=== PATIENT | female | born 1950 | race Caucasian/White ===

== ENCOUNTER → 2016-06-27 | Outpatient (REF) | payer OTHER ==
[~2016-06-27] MED LIST: ASPI325T10 PO; ASPI81CH PO; BUPROPION PO; CALC25TA PO; CALC600T7 PO; CELE40TA PO; FIBER PILL PO; LEVO100T4 PO; NAPR500T PO; NICO14PA TD; OXYB5TAB80 PO; SYNT25TA PO; TYLE325T5 PO; VITMTA PO; WELLTAB4 PO; levoxyl PO
[2016-06-27 11:50] LABS: MEAN CORPUSCULAR HEMOGLOBIN 30.4 pg (27.0-33.0); MEAN CORPUSCULAR VOLUME 95.2 fl (80.0-96.0); RED CELL DISTRIBUTION WIDTH 12.9 % (11.5-14.5); WHITE BLOOD COUNT 7.4 K/mm3 (4.0-10.0)
[2016-06-27 12:14] LABS: ALBUMIN 4.1 GM/DL (3.2-5.2); ALBUMIN/GLOBULIN RATIO 1.21 (1.00-1.93); ALKALINE PHOSPHATASE 116 U/L (45-117); ALT/SGPT 28 U/L (12-78); ANION GAP 4 MEQ/L (8-16); AST/SGOT 19 U/L (15-37); BILIRUBIN,TOTAL 0.7 MG/DL (0.2-1.0); BLOOD UREA NITROGEN 29 MG/DL (7-18); CALCIUM LEVEL 9.6 MG/DL (8.8-10.2); CARBON DIOXIDE LEVEL 33 MEQ/L (21-32); CHLORIDE LEVEL 108 MEQ/L (98-107); CHOLESTEROL LEVEL 193 MG/DL (<200); CREATININE FOR GFR 0.98 MG/DL (0.55-1.02); GLOMERULAR FILTRATION RATE > 60.0 (>45); GLUCOSE, FASTING 87 MG/DL (80-110); POTASSIUM SERUM 4.8 MEQ/L (3.5-5.1); SODIUM LEVEL 145 MEQ/L (136-145); TOTAL PROTEIN 7.5 GM/DL (6.4-8.2); TRIGLYCERIDES LEVEL 105 MG/DL (<150)
== END ==
LOC: M SFHCLERA 09:05
PROVIDERS: ATTEND Physician Assistant
DX: N39.46 Mixed incontinence (principal); E78.2 Mixed hyperlipidemia; E03.9 Hypothyroidism, unspecified; E55.9 Vitamin D deficiency, unspecified

== ENCOUNTER → 2016-09-05 | Outpatient (REF) | payer OTHER ==
[2016-09-05 12:14] LABS: ALBUMIN 3.6 GM/DL (3.2-5.2); ALBUMIN/GLOBULIN RATIO 1.09 (1.00-1.93); ALKALINE PHOSPHATASE 122 U/L (45-117); ALT/SGPT 23 U/L (12-78); ANION GAP 4 MEQ/L (8-16); AST/SGOT 10 U/L (15-37); BILIRUBIN,TOTAL 0.2 MG/DL (0.2-1.0); BLOOD UREA NITROGEN 17 MG/DL (7-18); CALCIUM LEVEL 8.7 MG/DL (8.8-10.2); CARBON DIOXIDE LEVEL 32 MEQ/L (21-32); CHLORIDE LEVEL 107 MEQ/L (98-107); CHOLESTEROL LEVEL 140 MG/DL (<200); CREATININE FOR GFR 0.74 MG/DL (0.55-1.02); GLOMERULAR FILTRATION RATE > 60.0 (>45); GLUCOSE, FASTING 103 MG/DL (80-110); POTASSIUM SERUM 4.3 MEQ/L (3.5-5.1); SODIUM LEVEL 143 MEQ/L (136-145); TOTAL PROTEIN 6.9 GM/DL (6.4-8.2); TRIGLYCERIDES LEVEL 122 MG/DL (<150)
== END ==
LOC: M SFHCLERA 08:16
PROVIDERS: ATTEND Physician Assistant
DX: E78.2 Mixed hyperlipidemia (principal); E03.9 Hypothyroidism, unspecified

== ENCOUNTER → 2016-09-18 | Outpatient (REF) | payer OTHER | LOC: M SFHCLERA 08:30 | PROVIDERS: ATTEND Physician Assistant | DX: R68.2 Dry mouth, unspecified (principal); E03.9 Hypothyroidism, unspecified; Z11.59 Encounter for screening for other viral diseases; Z53.9 Procedure and treatment not carried out, unspecified reason ==

== ENCOUNTER → 2016-09-19 | Outpatient (REF) | payer OTHER ==
[2016-09-19 12:36] LABS: FREE T4 1.24 NG/DL (0.76-1.46)
== END ==
LOC: M SFHCLERA 08:45
PROVIDERS: ATTEND Physician Assistant
DX: R68.2 Dry mouth, unspecified (principal); E03.9 Hypothyroidism, unspecified; Z11.59 Encounter for screening for other viral diseases

== ENCOUNTER → 2016-12-14 | Outpatient (REF) | payer OTHER ==
[2016-12-14 13:37] LABS: MEAN CORPUSCULAR HEMOGLOBIN 31.3 pg (27.0-33.0); MEAN CORPUSCULAR VOLUME 94.9 fl (80.0-96.0); RED CELL DISTRIBUTION WIDTH 12.7 % (11.5-14.5); WHITE BLOOD COUNT 6.3 K/mm3 (4.0-10.0)
[2016-12-14 13:51] LABS: ALBUMIN 3.7 GM/DL (3.2-5.2); ALBUMIN/GLOBULIN RATIO 1.09 (1.00-1.93); ALKALINE PHOSPHATASE 104 U/L (45-117); ALT/SGPT 23 U/L (12-78); ANION GAP 8 MEQ/L (8-16); AST/SGOT 13 U/L (15-37); BILIRUBIN,TOTAL 0.3 MG/DL (0.2-1.0); BLOOD UREA NITROGEN 19 MG/DL (7-18); CALCIUM LEVEL 9.2 MG/DL (8.8-10.2); CARBON DIOXIDE LEVEL 29 MEQ/L (21-32); CHLORIDE LEVEL 105 MEQ/L (98-107); CHOLESTEROL LEVEL 205 MG/DL (<200); FREE T4 1.12 NG/DL (0.76-1.46); GLOMERULAR FILTRATION RATE > 60.0 (>45); GLUCOSE, FASTING 96 MG/DL (80-110); POTASSIUM SERUM 4.2 MEQ/L (3.5-5.1); SODIUM LEVEL 142 MEQ/L (136-145); TOTAL PROTEIN 7.1 GM/DL (6.4-8.2); TRIGLYCERIDES LEVEL 104 MG/DL (<150)
== END ==
LOC: M SFHCLERA 09:51
PROVIDERS: ATTEND Physician Assistant
DX: G25.81 Restless legs syndrome (principal); E78.2 Mixed hyperlipidemia; E03.9 Hypothyroidism, unspecified; Z01.84 Encounter for antibody response examination

== ENCOUNTER → 2017-01-01 | Outpatient (CLI) | payer MEDICARE ==
--- NOTE | 2017-01-01 12:05 | REPMRS ---
Patient History The patient states she had a clinical breast exam in Patient is postmenopausal. Family history of breast cancer in 2 sisters at age 50 or over. Taking estrogen for 4 years. Digital Woman Screen Mammo: January 01, 2017 - Exam #: [id number] Bilateral CC and MLO view(s) were taken. Technologist: Naila Silva, Technologist Prior study comparison: January 02, 2016, digital woman screen mammo performed at [facility]. January 17, 2015, digital woman screen mammo performed at [facility]. December 16, 2012, digital woman screen mammo performed at [facility]. FINDINGS: There are scattered fibroglandular densities. There is a 7 mm well-circumscribed nodular density in the retroareolar region of the left breast anterior third at approximately 6 o'clock which is more prominent than on prior mammograms and merits further evaluation. There has been no other change in the appearance of the mammogram from the prior studies. There is a mild amount of scattered fibroglandular density which is fairly symmetric. There is no interval development of architectural distortion or clustered microcalcification suggestive of malignancy. ASSESSMENT: BI-RADS/ACR category 0 mammogram, incomplete. Recommendation Ultrasound and follow-up diagnostic mammogram of the left breast. This mammogram was interpreted with the aid of an FDA-approved computer-aided dectection system. Electronically Signed By: Morgan Wilcox MD 01/01/17 1621
== END ==
LOC: M WHC 10:13
PROVIDERS: ATTEND Nurse Practitioner Family
DX: R92.2 Inconclusive mammogram (principal); B37.3 Candidiasis of vulva and vagina; Z78.0 Asymptomatic menopausal state; Z80.3 Family history of malignant neoplasm of breast; Z92.23 Personal history of estrogen therapy; Z12.12 Encounter for screening for malignant neoplasm of rectum
CPT/HCPCS: 82270; 87070; 87210; G0202; G0463

== ENCOUNTER → 2017-01-14 | Outpatient (CLI) | payer MEDICARE, MEDICAID ==
--- NOTE | 2017-01-14 12:43 | REP ---
DIGITAL DIAGNOSTIC UNILATERAL LEFT BREAST MAMMOGRAPHY AND FOCUSED LEFT BREAST SONOGRAPHY: HISTORY: Screening mammography January 01, 2017 was BIRADS category 0, incomplete because of a 7 mm well-circumscribed nodule in the retroareolar region on the left for which diagnostic imaging was recommended. FINDINGS: Magnified focal spot compression CC, true MLO, and MLO views of the left breast were obtained. These confirm the presence of a well-circumscribed nodule at approximately 6 o'clock position in the left breast. No other significant mammographic finding. SONOGRAPHIC FINDINGS: The left breast is scanned at approximate 6 o'clock position. There is a 0.5 x 0.4 x 0.3 cm cyst 1.5 cm from the nipple, which is felt to account for the mammographic opacity. A few slightly prominent dilated ducts are seen as well. No mass or acoustic shadowing is observed. IMPRESSION: BIRADS category 2 benign left breast imaging. Small cyst is observed in the retroareolar region at 6 o'clock position accounting for the mammographic opacity. Bilateral screening mammography recommended in 1 year. BI-RADS/ACR category 2 mammogram. Benign finding(s). Routine annual screening mammography (for women over age 40). This mammogram was interpreted with the aid of an FDA-approved computer-aided detection system. The patient states she/he had a clinical breast exam in December 2016 The patient letter being requested is M1. Signed by Manav Wilcox MD 01/14/2017 02:48 P
== END ==
LOC: M RAD 09:57
PROVIDERS: ATTEND Nurse Practitioner Family
DX: N60.02 Solitary cyst of left breast (principal)
CPT/HCPCS: 76642; G0206

== ENCOUNTER 2017-04-03 12:54 | Emergency (ER) | payer MEDICARE, MEDICAID ==
[~2017-04-03] VITALS: Ht 167.6 cm; Wt 78.2 kg
[2017-04-03] MEDS ORDERED: FOLI1TAB4 (13:06)
[2017-04-03] MEDS ORDERED: VITA1CAP40 (13:06)
[2017-04-03] MEDS ORDERED: OXYB5TAB10 (13:06)
[2017-04-03] MEDS ORDERED: ASPI81TA85 PO (13:06)
[2017-04-03] MEDS ORDERED: LEVO112T2 (13:06)
[2017-04-03] MEDS ORDERED: GABA-282 (13:06)
--- NOTE | 2017-04-03 13:31 | REP ---
Clinical: Trauma. Fall. Technique: AP, lateral, bilateral oblique views of the right wrist. Findings: There is a closed, nondisplaced fracture through the distal radial metaphysis extending to the articular surface. Overlying soft tissue swelling noted. The carpal bones appear intact. The distal ulna appears intact. Impression: Intra-articular fracture involving the distal radial metaphysis. Signed by Kendall Chen MD 04/03/2017 01:22 P
[2017-04-03] MEDS ORDERED: NORCOTAB PO (16:14)
[2017-04-03] MEDS ORDERED: NORCO, ANEXSIA 5/325MG TABLET (HYDROcodone/ACETAMINOPHEN) PO ONE (16:30)
[2017-04-03 16:54] VITALS: BP 114/59
== END 2017-04-03 17:00 | disposition home or self-care (01) ==
LOC: M ED 12:54
DX: S52.501A Unspecified fracture of the lower end of right radius, initial encounter for closed fracture (principal); W01.0XXA Fall on same level from slipping, tripping and stumbling without subsequent striking against object, initial encounter; Y92.828 Other wilderness area as the place of occurrence of the external cause; Y93.89 Activity, other specified; Y99.8 Other external cause status; F41.9 Anxiety disorder, unspecified; F33.9 Major depressive disorder, recurrent, unspecified; M54.5 Low back pain; E03.9 Hypothyroidism, unspecified; Z79.899 Other long term (current) drug therapy; Z79.82 Long term (current) use of aspirin; F17.210 Nicotine dependence, cigarettes, uncomplicated

== ENCOUNTER 2017-05-08 08:55 | Outpatient (RCR) | payer MEDICARE, MEDICAID | END 2017-05-19 | LOC: M PT 08:55 → M OT 05-15 12:44 | DX: Z51.89 Encounter for other specified aftercare (principal); M25.511 Pain in right shoulder; S52.531D Colles' fracture of right radius, subsequent encounter for closed fracture with routine healing | CPT/HCPCS: 97110 ==

== ENCOUNTER → 2017-05-14 | Outpatient (REF) | payer MEDICARE | LOC: M SFHCWAGY 11:49 | DX: N30.01 Acute cystitis with hematuria (principal) | CPT/HCPCS: 87186 ==

== ENCOUNTER 2017-05-22 12:24 | Outpatient (RCR) | payer MEDICARE, MEDICAID | END 2017-06-19 | LOC: M OT 12:24 → M PT 06-03 12:30 → M OT 06-17 12:56 → M PT 06-19 12:16 → M OT 12:24 → M PT 06-03 12:30 → M OT 06-17 12:56 → M PT 06-19 12:16 → M OT 05-29 12:55 | DX: Z51.89 Encounter for other specified aftercare (principal); M25.511 Pain in right shoulder; S52.531D Colles' fracture of right radius, subsequent encounter for closed fracture with routine healing | CPT/HCPCS: 97110 ==

== ENCOUNTER → 2017-06-06 | Outpatient (REF) | payer MEDICARE, MEDICAID | LOC: M SFHCLERA 09:07 | DX: R00.1 Bradycardia, unspecified (principal) ==

== ENCOUNTER 2017-06-24 09:22 | Outpatient (RCR) | payer MEDICARE, MEDICAID | END 2017-07-17 | LOC: M PT 09:22 → M OT 06-26 08:06 | DX: Z51.89 Encounter for other specified aftercare (principal); M25.511 Pain in right shoulder; S52.531D Colles' fracture of right radius, subsequent encounter for closed fracture with routine healing | CPT/HCPCS: 97110 ==

== ENCOUNTER → 2017-06-28 | Outpatient (REF) | payer MEDICARE, MEDICAID ==
[2017-06-28 12:00] LABS: HEMATOCRIT 42.2 % (36.0-47.0); HEMOGLOBIN 13.4 g/dl (12.0-16.0); MEAN CORPUSCULAR HEMOGLOBIN 29.6 pg (27.0-33.0); MEAN CORPUSCULAR HGB CONC 31.8 g/dl (32.0-36.5); MEAN CORPUSCULAR VOLUME 93.4 fl (80.0-96.0); PLATELET COUNT, AUTOMATED 188 10^3/uL (150-450); RED BLOOD COUNT 4.52 10^6/uL (4.00-5.40); RED CELL DISTRIBUTION WIDTH 12.8 % (11.5-14.5); WHITE BLOOD COUNT 6.6 10^3/uL (4.0-10.0)
[2017-06-28 12:39] LABS: ALBUMIN 3.9 GM/DL (3.2-5.2); ALBUMIN/GLOBULIN RATIO 1.11 (1.00-1.93); ALKALINE PHOSPHATASE 111 U/L (45-117); ALT/SGPT 22 U/L (12-78); ANION GAP 8 MEQ/L (8-16); AST/SGOT 20 U/L (7-37); BILIRUBIN,TOTAL 0.6 MG/DL (0.2-1.0); BLOOD UREA NITROGEN 25 MG/DL (7-18); CALCIUM LEVEL 9.2 MG/DL (8.8-10.2); CARBON DIOXIDE LEVEL 30 MEQ/L (21-32); CHLORIDE LEVEL 105 MEQ/L (98-107); CREATININE FOR GFR 0.83 MG/DL (0.55-1.30); GLOMERULAR FILTRATION RATE > 60.0 (>45); GLUCOSE, FASTING 91 MG/DL (70-100); POTASSIUM SERUM 3.8 MEQ/L (3.5-5.1); SODIUM LEVEL 143 MEQ/L (136-145); THYROID STIMULATING HORMONE 0.647 uIU/ML (0.358-3.740); TOTAL PROTEIN 7.4 GM/DL (6.4-8.2)
== END ==
LOC: M SFHCLERA 08:52
DX: R00.1 Bradycardia, unspecified (principal)
CPT/HCPCS: 84443

== ENCOUNTER 2017-07-23 08:21 | Outpatient (RCR) | payer MEDICARE, MEDICAID | END 2017-08-17 | LOC: M OT 07-25 08:20 | DX: Z51.89 Encounter for other specified aftercare (principal); M25.511 Pain in right shoulder; S52.531D Colles' fracture of right radius, subsequent encounter for closed fracture with routine healing | CPT/HCPCS: 97110 ==

== ENCOUNTER 2017-08-21 08:28 | Outpatient (RCR) | payer MEDICARE, MEDICAID | END 2017-09-16 | LOC: M OT 08:28 | DX: Z51.89 Encounter for other specified aftercare (principal); M25.511 Pain in right shoulder; S52.531D Colles' fracture of right radius, subsequent encounter for closed fracture with routine healing | CPT/HCPCS: 97110 ==

== ENCOUNTER → 2017-09-24 | Outpatient (CLI) | payer MEDICARE, MEDICAID | LOC: M WHC 07:47 | DX: M85.89 Other specified disorders of bone density and structure, multiple sites (principal) | CPT/HCPCS: 77080 ==

== ENCOUNTER → 2018-03-12 | Outpatient (REF) | payer MEDICARE, MEDICAID ==
[2018-03-12 17:31] LABS: BASO # 0.1 10^3/uL (0.0-0.2); BASO % 1.2 % (0.0-1.0); EOS # 0.5 10^3/uL (0.0-0.50); EOS % 5.4 % (0.0-3.0); HEMATOCRIT 42.8 % (36.0-47.0); HEMOGLOBIN 13.7 g/dl (12.0-15.5); IMMATURE GRANULOCYTE % 0.1 % (0-3.0); LYMPH # 3.1 10^3/uL (1.5-4.5); LYMPH % 31.5 % (24.0-44.0); MEAN CORPUSCULAR HEMOGLOBIN 30.1 pg (27.0-33.0); MEAN CORPUSCULAR VOLUME 94.1 fl (80.0-96.0); MONO # 0.7 10^3/uL (0.0-0.8); MONO % 7.3 % (0.0-5.0); NEUTROPHILS # 5.3 10^3/uL (1.8-7.7); NEUTROPHILS % 54.5 % (36.0-66.0); PLATELET COUNT, AUTOMATED 213 10^3/uL (150-450); RED BLOOD COUNT 4.55 10^6/uL (4.00-5.40); RED CELL DISTRIBUTION WIDTH 12.7 % (11.5-14.5); WHITE BLOOD COUNT 9.7 10^3/uL (4.0-10.0)
[2018-03-12 17:36] LABS: ALBUMIN 3.9 GM/DL (3.2-5.2); ALBUMIN/GLOBULIN RATIO 1.11 (1.00-1.93); ALKALINE PHOSPHATASE 114 U/L (45-117); ALT/SGPT 23 U/L (12-78); ANION GAP 6 MEQ/L (8-16); AST/SGOT 16 U/L (7-37); BILIRUBIN,TOTAL 0.3 MG/DL (0.2-1.0); BLOOD UREA NITROGEN 25 MG/DL (7-18); CALCIUM LEVEL 9.8 MG/DL (8.8-10.2); CARBON DIOXIDE LEVEL 31 MEQ/L (21-32); CHLORIDE LEVEL 109 MEQ/L (98-107); CHOLESTEROL LEVEL 145 MG/DL (<200); CHOLESTEROL RISK RATIO 2.788 (<5); CREATININE FOR GFR 0.85 MG/DL (0.55-1.30); FREE T4 1.24 NG/DL (0.76-1.46); GLOMERULAR FILTRATION RATE > 60.0 (>45); GLUCOSE, FASTING 91 MG/DL (70-100); HDL CHOLESTEROL 52 MG/DL (>40); LDL CHOLESTEROL 55 MG/DL (<100); NON-HDL-C 93 MG/DL; POTASSIUM SERUM 4.4 MEQ/L (3.5-5.1); SODIUM LEVEL 146 MEQ/L (136-145); THYROID STIMULATING HORMONE 0.364 uIU/ML (0.358-3.740); TOTAL PROTEIN 7.4 GM/DL (6.4-8.2); TRIGLYCERIDES LEVEL 190 MG/DL (<150)
[2018-03-12 17:39] LABS: TOTAL 25(OH) VITAMIN D 59.1 NG/ML (30.0-100.0)
== END ==
LOC: M SFHCPLAZ 15:17
DX: E78.2 Mixed hyperlipidemia (principal); E03.9 Hypothyroidism, unspecified; E55.9 Vitamin D deficiency, unspecified; J44.9 Chronic obstructive pulmonary disease, unspecified; Z23 Encounter for immunization
CPT/HCPCS: 84443

== ENCOUNTER → 2019-11-27 | Outpatient (REF) | payer OTHER, MEDICAID ==
[~2019-11-27] MED LIST changes: +ASPI81TA86 PO; +FOLI1TAB11; +GABA-843; +HYDR-3715 PO; +LEVO112T2; +NICO14DI20 TD; -NICO14PA TD; +OXYB5TAB10; +VITA50005
== END ==
LOC: M LAB REF 17:56
PROVIDERS: ATTEND Physician Assistant
DX: C44.622 Squamous cell carcinoma of skin of right upper limb, including shoulder (principal)
CPT/HCPCS: 11102; 88305; G0463